=== PATIENT | female | born 1980 | race Caucasian/White ===

== ENCOUNTER 2023-11-06 06:03 | Emergency (ER) | payer OTHER, SELFPAY ==
[2023-11-06 06:06] VITALS: BP 119/83
[2023-11-06 07:20] VITALS: BMI 35.0
--- NOTE | 2023-11-06 07:21 | ED.GENMED ---
History of Present Illness
General
Chief Complaint: Abdominal Symptoms
Source: patient
Exam Limitations: none
Time Seen by Provider: 11/06/23 07:01
Nursing documentation reviewed up to this point in time: agreed with
Travel History
Have you had any contact with someone who has COVID-19?: No
Do you have any symptoms of coronavirus? Fever > 100 degrees, chills, cough, shortness of breath, sore throat, loss of taste or smell, muscle aches, or headache?: No
History of Present Illness
History of Present Illness:
pt is a 43 y/o F with h/o gerd
here with diarrhea x 4 days
she says the first 2 days were light diarrhea, a few episodes
but then yesterady she went 7-9 times watery diarrhea, occ blood with wiping becuase h/o hemorrhoids which are chronic
she gets upper abdominal pains off and on, took a dose of gasex but doesn't know if it really helped. she had been eating normally the first 2 days but then yesterday didn't really eat much, lakc of appetite and when she did eat, she got some pain.
the pain resolved
pt doesn't like taking meidcations
she has not had any fever, chills, vomiting, nausea, weakness
she does feel some cramps in her legs and has had less urinary output than normal and feels dehydrated
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
does have some intolerance to dairy.
Past History
Past History
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
Social History
Tobacco: Non-smoker
Alcohol: None
Drug: None
Personal:
Living: with family
Employment: Employed
Family History
Family History: Other (Noncontributory)
Review of Systems
Review of Systems
Allergies reviewed?: Yes
All Other Systems: Not applicable
Phy Exam
Physical Exam
Physical Exam:
GENERAL: Alert , in no apparent distress
EYE: pupils equal and reactive
NECK: Supple
ENT: o/p clr, mmm.
CARDIAC: Regular rate and rhythm .
LUNGS: Clear breath sounds bilaterally, no acute respiratory distress, no wheezes/rales/rhonchi
ABDOMEN: Soft, no abdominal distension, nontender, no r/g, no cvat, normal bowel sounds
NEUROLOGICAL: Alert and oriented, no focal neuro deficits
SKIN: Warm and dry, skin intact.
MUSCULOSKELETAL: No edema, well perfused.
PSYCH: Normal and appropriate interaction.
Course
Orders/Labs/Results
Orders:
Orders
11/06/23 07:16
0.9% Sodium Chloride 1000 ml [Nss] 1,000 ml IV BOLUS
11/06/23 07:17
Test Result ONCE
11/06/23 07:29
Complete Blood Count/With Diff Urgent
Comprehensive Metabolic Panel Urgent
HCG, Serum Qualitative Screen Urgent
Lipase Urgent
Magnesium Urgent
Urinalysis Reflex To Culture Urgent
Date Specimen was Collected: 11/06/23
Time Specimen was Collected: 07:19
Urine Microscopic Reflex Cult Urgent
Urine Culture Urgent
LEENA Source: U
Specimen Description:
Date Specimen was Collected: 11/06/23
Time Specimen was Collected: 07:19
11/06/23 09:07
Obstruct Series W/PA Chest [CR Obstruct Series W/pa Chest] Urgent
Comment:
Reason For Exam: GAS PAIN, DIARRHEA
11/06/23 09:51
Urine Culture Urgent
LEENA Source: Urine
Specimen Description:
Obtained by: Bladder
Date Specimen was Collected: 11/06/23
Time Specimen was Collected: 09:48
Abnormal Lab Results
11/06/23
07:29
Hct 36.3 L %
(37.0-47.0)
Monocytes % 9.5 H %
(1.7-9.3)
Chloride 108 H mmol/L
(98-107)
Carbon Dioxide 20 L mmol/L
(22-30)
Total Bilirubin 1.4 H mg/dl
(0.2-1.3)
Urine Ketones 1+ A
(Negative)
Ur Occult Blood Reflex 2+ A
(Negative)
Leukocyte Esterase Rfl Trace A
(Negative)
Urine RBC 3-6 A /HPF
(0-2)
Urine Bacteria (Reflex) Moderate A
(Negative)
11/06/23 07:29
11/06/23 07:29
Vital Signs
Initial and Last Documented VS:
Initial Vital Signs
Temp Pulse Resp BP Pulse Ox
97.8 F 82 16 119/83 97
11/06/23 06:06 11/06/23 06:06 11/06/23 06:06 11/06/23 06:06 11/06/23 06:06
Last Documented Vital Signs
Temp Pulse Resp BP Pulse Ox
97.8 F 84 18 110/67 100
11/06/23 06:06 11/06/23 10:00 11/06/23 10:00 11/06/23 09:00 11/06/23 10:00
MDM/Problems Addressed
Differential Diagnosis Includes:
viral diarrhea, infectious diarrhea, diverticulitis, colitis, c diff
MDM/Problems Addressed:
43-year-old female with several days of diarrhea, slightly worsening over yesterday and today to 6-8 episodes of watery diarrhea. Is not foul-smelling and she gets cramps in her abdomen before having to move her bowels but no sustainable pain and
no focal tenderness. She is not having any fevers or chills. She did feel dehydrated and that she was urinating less but is not having any urinary discomfort. She has not had any recent travel or exposures to C. difficile that she knows of, no
recent antibiotics. She does not have any chronic IBS. She has had previous diagnoses of diverticulosis but never diverticulitis. On exam the patient looks very well, she does not appear overly dehydrated, her abdomen is soft and nontender with
no focal signs, no rebound or guarding. She was assessed with labs, her urine was slightly abnormal but contaminated. I had her repeat a sample where she wiped better to give a urine culture but at this point offered her antibiotics which she
declined because she is asymptomatic. Regarding the diarrhea since has been only 3 days I would recommend that she try the brat diet and increase fluids and maybe 1 dose of Imodium, she was unable to give a stool sample here. I would hold on
antibiotics at this point. I did consider diverticulitis but the patient has no pain. I did offer her a round of antibiotics for this as well which she declined
*Critical Care Note
Total Time (30-74mins, 75-104mins- exclusive of procedures): Not Applicable
ED Attending Note
-
Portions of this chart may have been created with voice recognition software.� Occasional wrong word or��sound alike� substitutions may have occurred due to the inherent limitations of voice recognition software.
Discharge Plan
Departure
Patient Disposition: Home (Routine Discharge)
Date of Disposition: 11/06/23
Time of Disposition: 09:49
Patient with high blood pressure during this ER visit?: No
Condition: Fair
Covid-19: Not Applicable
Discharge Problem:
Diarrhea
Instructions: Levy Diet, Diarrhea, Adult ED
Prescriptions:
No Action
ibuprofen 600 mg tablet
600 mg PO Q8H PRN (Reason: Pain) Qty: 20 0RF
ondansetron 4 mg tablet,disintegrating
4 mg PO TIDPRN PRN (Reason: nausea/vomiting) Qty: 14 0RF
Referrals:
UNKNOWN - PT DOES,NOT KNOW [Unknown Provider] -
Activity Restrictions/Additional Instructions:
YOUR DIARRHEA IS LIKELY VIRAL
WE USUALLY TRY TO AVOID ANTIBIOTICS UNTIL SYMPTOMS ARE LONGER THAN 1 WEEK
YOU CAN TRY A DOSE OF IMMODIUM TO TRY TO STOP THE DIARRHEA, BUT BE CAUTIOUS THIS CAN CAUSE CONSTIPATION
TRY THE BRAT DIET (BANANAS RICE APPLESAUCE TOAST)
DRINK FLUIDS TO STYA HYDRATED
WE SENT A URINE CULTURE IN CASE YOU HAVE AN INFECTION
RETURN FOR SEVRE DIARRHEA, BLOODY DIARRHEA, FEVER, VOMITING, ABDOMINAL PAIN, DEHYDRATION OR ANY CONCERNS.
Interventions
Interventions:
*Risk Screen - Suicide Last Done: 11/06/23 06:06
*General Assessment Last Done: 11/06/23 07:33
*Neglect/Abuse Screening Last Done: 11/06/23 06:06
ED- Fall Risk Assessment Last Done: 11/06/23 06:06
*ED COVID-19 Vaccine History Last Done: 11/06/23 06:06
*Nursing Disposition Last Done: 11/06/23 10:43
MO-Kphrlq-Nkragvesju Assessment Last Done: 11/06/23 07:33
Discharge Date and Time
Discharge Date/Time: 11/06/23 10:44
Print Language: GREENLANDIC
[2023-11-06] MEDS: NSS 1000 IV (07:28)
[2023-11-06 07:43] LABS: % Basophils 0.4 % (0-2); % Eosinophils 1.4 % (0-6); % Immature Granulocytes 0.2 % (0-0.5); % Lymphocytes 27.5 % (20.5-51.1); % Monocytes 9.5 % (1.7-9.3); Absolute Eosinophils 0.1 10^3/uL (0-0.7); Absolute Lymphocytes 1.6 10^3/uL (1.2-3.4); Absolute Monocytes 0.5 10^3/uL (0.1-0.6); Absolute Neutrophils 3.5 10^3/uL (1.4-6.5); Hematocrit 36.3 % (37.0-47.0); Hemoglobin 12.9 g/dL (12.0-16.0); Mean Corp Hgb Conc. 35.5 g/dL (33.0-37.0); Mean Corpuscular Hgb 30.5 pg (27.0-31.0); Mean Corpuscular Volume 85.8 fL (81.0-99.0); Mean Platelet Volume 10.3 fL (7.4-10.4); Nucleated Red Blood Cells % 0 %; Platelet Count 274 10^3/uL (130-400); Red Blood Cell Count 4.23 10^6/uL (4.20-5.40); Red Cell Dist. Width 12.3 % (11.5-14.5); White Blood Cell Count 5.7 10^3/uL (4.8-10.8)
[2023-11-06 07:49] LABS: Urine Albumin Negative (Neg - Trace); Urine Bilirubin Negative (Negative); Urine Character Clear (Clear); Urine Color Yellow; Urine Glucose Negative (Negative); Urine Ketone 1+ (Negative); Urine Leukocyte Trace (Negative); Urine Nitrite Negative (Negative); Urine Occult Blood 2+ (Negative); Urine Specific Gravity 1.025 (<1.030); Urine Urobilinogen Negative (Neg - 1+)
[2023-11-06 07:51] LABS: HCG, Serum Qualitative Screen Negative
[2023-11-06 07:56] LABS: ALT (SGPT) 19 U/L (0-35); AST (SGOT) 25 U/L (14-36); Albumin 4.4 g/dl (3.5-5.0); Alkaline Phosphatase 92 U/L (38-126); Blood Urea Nitrogen 11 mg/dl (7-17); Calcium 9.3 mg/dl (8.4-10.2); Carbon Dioxide 20 mmol/L (22-30); Chloride 108 mmol/L (98-107); Estimated Creatinine Clearance 120 ml/min; Glucose 94 mg/dl (70-99); Lipase 84 U/L (23-300); Potassium 3.9 mmol/L (3.5-5.1); Sodium 136 mmol/L (135-145); Total Bilirubin 1.4 mg/dl (0.2-1.3); Total Protein 7.5 g/dl (6.3-8.2); eGFR > 60.00
[2023-11-06 08:00] VITALS: BP 112/78
[2023-11-06 08:15] LABS: Urine Mucus Moderate; Urine Squamous Cell 16-20 /LPF (Few)
[2023-11-06 08:22] LABS: Urine Bacteria Moderate (Negative)
[2023-11-06 09:00] VITALS: BP 110/67
== END 2023-11-06 10:44 | disposition home or self-care (01) ==
LOC: EMR 06:03
PROVIDERS: Physician Assistant; EMERGENCY PHYSICIAN Emergency Medicine
DX: R19.7 Diarrhea, unspecified (principal); R10.10 Upper abdominal pain, unspecified; R25.2 Cramp and spasm; K21.9 Gastro-esophageal reflux disease without esophagitis; K57.90 Diverticulosis of intestine, part unspecified, without perforation or abscess without bleeding; Z88.5 Allergy status to narcotic agent
CPT/HCPCS: 99284; 96360; 74022; 80053; 81003; 81015; 83690; 83735; 84703; 85025; 87086

== ENCOUNTER 2024-08-31 16:55 | Emergency (ER) | payer OTHER, SELFPAY ==
[2024-08-31 17:20] VITALS: BP 133/95
[2024-08-31 17:38] LABS: % Basophils 0.3 % (0-2); % Eosinophils 1.3 % (0-6); % Immature Granulocytes 0.2 % (0-0.5); % Monocytes 5.2 % (1.7-9.3); Absolute Eosinophils 0.1 10^3/uL (0-0.7); Absolute Lymphocytes 2.4 10^3/uL (1.2-3.4); Absolute Monocytes 0.5 10^3/uL (0.1-0.6); Absolute Neutrophils 6.1 10^3/uL (1.4-6.5); Hematocrit 38.4 % (37.0-47.0); Hemoglobin 13.4 g/dL (12.0-16.0); Mean Corp Hgb Conc. 34.9 g/dL (33.0-37.0); Mean Corpuscular Hgb 30.2 pg (27.0-31.0); Mean Corpuscular Volume 86.5 fL (81.0-99.0); Nucleated Red Blood Cells % 0 %; Platelet Count 296 10^3/uL (130-400); Red Blood Cell Count 4.44 10^6/uL (4.20-5.40); Red Cell Dist. Width 12.6 % (11.5-14.5); White Blood Cell Count 9.1 10^3/uL (4.8-10.8)
[2024-08-31 17:45] LABS: Urine Albumin Negative (Neg - Trace); Urine Bilirubin Negative (Negative); Urine Character Clear (Clear); Urine Glucose Negative (Negative); Urine Ketone Negative (Negative); Urine Leukocyte Negative (Negative); Urine Nitrite Negative (Negative); Urine Occult Blood Negative (Negative); Urine Urobilinogen Negative (Neg - 1+)
[2024-08-31 17:49] LABS: Urine Color Straw
[2024-08-31 17:50] LABS: HCG, Serum Qualitative Screen Negative
[2024-08-31 17:54] LABS: ALT (SGPT) 16 U/L (0-35); AST (SGOT) 17 U/L (14-36); Albumin 4.3 g/dl (3.5-5.0); Alkaline Phosphatase 96 U/L (38-126); Blood Urea Nitrogen 9 mg/dl (7-17); Calcium 9.8 mg/dl (8.4-10.2); Carbon Dioxide 19 mmol/L (22-30); Chloride 108 mmol/L (98-107); Glucose 125 mg/dl (70-99); Lipase 110 U/L (23-300); Potassium 4.1 mmol/L (3.5-5.1); Sodium 138 mmol/L (135-145); Total Bilirubin 1.1 mg/dl (0.2-1.3); Total Protein 7.6 g/dl (6.3-8.2); eGFR > 60.00
--- NOTE | 2024-08-31 19:31 | EDRN ---
urine. Pt has no burning or frequency. No fever.
--- NOTE | 2024-08-31 21:21 | ED.GENMED ---
History of Present Illness
General
Chief Complaint: Urinary Symptoms
Source: patient
Exam Limitations: none
Time Seen by Provider: 08/31/24 20:59
Nursing documentation reviewed up to this point in time: agreed with
History of Present Illness
History of Present Illness:
44-year-old female with past medical history of GERD, diverticulosis, presents to the emergency department today with concerns of blood she noticed when wiping while using the bathroom. Patient is concerned that she had blood in her urine. Patient
noticed this today. Patient states that when she used bathroom earlier today, she noticed on the toilet paper but notes any garry bloody urine, denies any blood in the toilet bowl. Patient denies any lightheadedness or dizziness. Patient was
recently started on Valtrex for shingles and is concerned that this symptom could be a side effect of the Valtrex. Patient also concerned that she may have a UTI in light of this finding. Patient is due for her menstrual period next week. She
denies any burning with urination, any pelvic pain. Patient does also note intermittent left-sided abdominal cramping and some diarrhea that started today however she states that she is been staying well-hydrated and she does not have a fever. She
notes that she has right back pain at the site of her rash but denies any other flank pain.
Past History
Past History
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
Social History
Tobacco: Non-smoker
Alcohol: None
Drug: None
Personal:
Living: with family
Employment: Employed
Family History
Family History: Other (Noncontributory)
Review of Systems
Review of Systems
All Other Systems: ROS reviewed and negative except as documented in HPI and ROS
Phy Exam
Physical Exam
Physical Exam:
General: Patient is well appearing and in no acute distress; non-toxic
Skin: Warm and dry, no rashes or lesions
Head: Normocephalic, atraumatic
Eyes: Sclera non-icteric. EOMs intact.
Cardiac: Regular rate and rhythm, no murmurs
Peripheral Vascular: No lower extremity swelling or edema
Pulm: Normal respiratory effort, no wheezes, rales, rhonchi
Abdomen: No abdominal tenderness to palpation, no palpable abdominal masses, no guarding, normoactive bowel sound
Neuro: CN II-XII intact, no focal neurologic deficits.
Psychiatric: Appropriate mood and affect.
Course
Orders/Labs/Results
Orders:
Orders
08/31/24 17:23
Test Result ONCE
08/31/24 17:31
Complete Blood Count/With Diff Urgent
Comprehensive Metabolic Panel Urgent
HCG, Serum Qualitative Screen Urgent
Comment: Notify provider if positive test present
Lipase Urgent
Urinalysis Reflex To Culture Urgent
Date Specimen was Collected: 08/31/24
Time Specimen was Collected: 17:22
Abnormal Lab Results
08/31/24
17:31
Chloride 108 H mmol/L
(98-107)
Carbon Dioxide 19 L mmol/L
(22-30)
Glucose 125 H mg/dl
(70-99)
08/31/24 17:31
08/31/24 17:31
Vital Signs
Initial and Last Documented VS:
Initial Vital Signs
Temp Pulse Resp BP Pulse Ox
98.7 F 91 16 133/95 98
08/31/24 17:20 08/31/24 17:20 08/31/24 17:20 08/31/24 17:20 08/31/24 17:20
Last Documented Vital Signs
Temp Pulse Resp BP Pulse Ox
98.7 F 85 16 127/83 98
08/31/24 17:20 08/31/24 21:40 08/31/24 21:40 08/31/24 21:40 08/31/24 21:40
MDM/Problems Addressed
Differential Diagnosis Includes:
Differentials include acute cystitis, vaginitis, menstruation, acute kidney injury
MDM/Problems Addressed:
44-year-old female presents emergency department today with concerns of blood she noticed on the toilet paper today. This only occurred once and she has not had any other episodes of this. She denies any garry hematuria. She denies any dysuria.
She denies any pelvic pain. She does note that she has some written crampy abdominal pain with bouts of diarrhea today but she has no fevers, no blood in her stool. Her urinalysis is negative for infection. Her kidney function is excellent. Do
not suspect Valtrex causing the symptoms. In light of benign abdominal exam, no fever, normal white count, do not feel any imaging is indicated at this time for patient's symptoms of cramping. Suspect either menstruation or possible vaginitis
causing patient's symptoms. Patient stable for discharge. Discussed establishing care with a primary to continue to monitor her symptoms.
Chronic conditions affecting care:
GERD, diverticulitis
*Pulse Oximetry
Patient hypoxic: no
*Critical Care Note
Total Time (30-74mins, 75-104mins- exclusive of procedures): Not Applicable
Data Reviewed
Review of Other/Old Records Reveals: Records (Reviewed ER physician mentation from 02/06/2023 patient seen for ocular migraine reviewed ER physician mentation from 11/06/2023 patient seen for diarrhea discharge had x-ray done of the abdomen which showed
no evidence of free air)
Source: patient and records
Patient Management
Escalation/DeEscalation of care consider admission/obs:
Admit not indicated, patient stable for discharge
ED Attending Note
-
Portions of this chart may have been created with voice recognition software.� Occasional wrong word or��sound alike� substitutions may have occurred due to the inherent limitations of voice recognition software.
Discharge Plan
Departure
Patient Disposition: Home (Routine Discharge)
Date of Disposition: 08/31/24
Time of Disposition: 21:30
Patient with high blood pressure during this ER visit?: Yes
Condition: Good
Discharge Problem:
Hematuria
Instructions: Blood in the Urine (Hematuria), Adult (DC), BLOOD PRESSURE
Prescriptions:
No Action
ibuprofen 600 mg tablet
600 mg PO Q8H PRN (Reason: Pain) Qty: 20 0RF
ondansetron 4 mg tablet,disintegrating
4 mg PO TIDPRN PRN (Reason: nausea/vomiting) Qty: 14 0RF
Referrals:
NONE,* [Family Provider] -
Yvette Kasper MD [Non-Admitting Privileges] - Call in 1-3 days for appt
Activity Restrictions/Additional Instructions:
I recommend establishing care with a primary care provider. Please call the attached number to schedule appointment to establish care.
Your urinalysis today did not show any evidence of infection. Your kidney function was normal. Please continue your Valtrex for your shingles infection.
PLEASE RETURN EMERGENCY DEPARTMENT SHOULD YOU DEVELOP PELVIC PAIN, FEVERS OR CHILLS, CHEST PAIN, SHORTNESS OF BREATH, ACUTE WORSENING OF YOUR ABDOMINAL CRAMPING, LIGHTHEADEDNESS, DIZZINESS, PERSISTENT BLEEDING, OR ANY OTHER SIGNS OR SYMPTOMS
WORRISOME TO YOU.
Interventions
Interventions:
*Risk Screen - Suicide Last Done: 08/31/24 17:20
*General Assessment Last Done: 08/31/24 19:25
*Neglect/Abuse Screening Last Done: 08/31/24 17:20
ED- Fall Risk Assessment Last Done: 08/31/24 19:25
*ED COVID-19 Vaccine History Last Done: 08/31/24 19:25
*Nursing Disposition Last Done: 08/31/24 21:40
ED-Female Genitourinary Assessment Last Done: 08/31/24 19:25
Discharge Date and Time
Discharge Date/Time: 08/31/24 21:40
Print Language: SAMI
[2024-08-31 21:40] VITALS: BP 127/83
== END 2024-08-31 21:40 | disposition home or self-care (01) ==
LOC: EMR 16:55
PROVIDERS: Emergency Medicine; EMERGENCY PHYSICIAN Emergency Medicine
DX: R31.9 Hematuria, unspecified (principal); K21.9 Gastro-esophageal reflux disease without esophagitis; R10.9 Unspecified abdominal pain; R19.7 Diarrhea, unspecified; Z87.19 Personal history of other diseases of the digestive system
CPT/HCPCS: 99283; 80053; 81003; 83690; 84703; 85025